=== PATIENT | female | born 1965 | race Caucasian/White ===

== ENCOUNTER 2021-01-16 08:40 | Day surgery (SDC) | payer OTHER ==
[2021-01-16] MEDS ORDERED: LIDOCAINE HCL 2% 100 MG/5 ML IJ ONE (08:41)
[2021-01-16] MEDS ORDERED: Depo-Medrol 80 MG/ML IM ONE (08:41)
[2021-01-16] MEDS ORDERED: DIPRIVAN 200 MG/20 ML IV ONE ×2 (11:22→11:34)
--- NOTE | 2021-01-16 13:15 | XRAY ---
Indication: Bilateral L4-S1 MBB. Intraoperative fluoroscopy was provided for 29 seconds. Single digital spot image submitted for interpretation demonstrates posterior needle tips projecting over the expected left and right L4-S1 nerve roots. Correlate with intraoperative findings/report.
--- NOTE | 2021-01-16 14:33 | XRAY ---
29 seconds of fluoroscopy was used in surgery for a bilateral L4-S1 MBB.
[2021-01-16] MEDS ORDERED: Lactated Ringers 1,000 ML IV ONE (17:26)
== END 2021-01-16 11:50 | disposition home or self-care (01) ==
LOC: SDC-PAIN 08:40
PROVIDERS: ATTEND Psychiatry & Neurology Pain Medicine
DX: M47.816 Spondylosis without myelopathy or radiculopathy, lumbar region (principal); Z79.899 Other long term (current) drug therapy
CPT/HCPCS: 64493; 64494; 72020; 77002; J1040; J2704

== ENCOUNTER 2021-02-27 07:36 | Day surgery (SDC) | payer OTHER ==
[2021-02-27] MEDS ORDERED: BUPIVACAINE 0.5% VIAL IJ ONE (07:37)
[2021-02-27] MEDS ORDERED: Depo-Medrol 40 MG/ML IM ONE (07:37)
[2021-02-27] MEDS ORDERED: DIPRIVAN 200 MG/20 ML IV ONE (08:49)
[2021-02-27] MEDS ORDERED: Lactated Ringers 1,000 ML IV ONE (09:55)
--- NOTE | 2021-02-27 09:55 | XRAY ---
Indication: Bilateral L4-S1 MBB. Intraoperative fluoroscopy provided for 19 seconds. Single digital spot image submitted for interpretation demonstrates posterior needle tips projecting over the expected left and right L4-S1 nerve roots. Correlate with intraoperative findings/report.
--- NOTE | 2021-02-27 09:57 | XRAY ---
19 seconds fluoroscopy time in surgery for bilateral L4-S1 MBB.
== END 2021-02-27 09:19 | disposition home or self-care (01) ==
LOC: SDC-PAIN 07:36
PROVIDERS: ATTEND Psychiatry & Neurology Pain Medicine
DX: M47.816 Spondylosis without myelopathy or radiculopathy, lumbar region (principal); J44.9 Chronic obstructive pulmonary disease, unspecified; M19.90 Unspecified osteoarthritis, unspecified site; Z79.899 Other long term (current) drug therapy
CPT/HCPCS: 64493; 64494; 72020; 77002; J1030; J2704

== ENCOUNTER 2021-04-03 12:06 | Day surgery (SDC) | payer OTHER ==
[2021-04-03] MEDS ORDERED: BUPIVACAINE 0.5% VIAL IJ ONE (12:07)
[2021-04-03] MEDS ORDERED: Depo-Medrol 40 MG/ML IM ONE (12:07)
[2021-04-03] MEDS ORDERED: Xylocaine 1% Vial 30 ML PF IJ ONE (12:07)
[2021-04-03] MEDS ORDERED: Lactated Ringers 1,000 ML IV ONE (13:46)
[2021-04-03] MEDS ORDERED: DIPRIVAN 200 MG/20 ML IV ONE ×2 (14:05→14:15)
--- NOTE | 2021-04-03 16:40 | XRAY ---
Indication: Right L4-S1 RFA. Intraoperative fluoroscopy provided for 1 minutes. 5 digital spot image submitted for interpretation demonstrates posterior needle tips projecting over the expected right L4-S1 nerve roots. Correlate with intraoperative findings/report.
--- NOTE | 2021-04-03 17:13 | XRAY ---
1 minute fluoroscopy time in surgery for right L4-S1 RFA.
== END 2021-04-03 14:45 | disposition home or self-care (01) ==
LOC: SDC-PAIN 12:06
PROVIDERS: ATTEND Psychiatry & Neurology Pain Medicine
DX: M47.816 Spondylosis without myelopathy or radiculopathy, lumbar region (principal); J44.9 Chronic obstructive pulmonary disease, unspecified; Z79.899 Other long term (current) drug therapy
CPT/HCPCS: 64635; 64636; 72100; 77002; J1030; J2001; J2704

== ENCOUNTER 2021-04-10 11:54 | Day surgery (SDC) | payer OTHER ==
[2021-04-10] MEDS ORDERED: Xylocaine 1% Vial 30 ML PF IJ ONE (11:55)
[2021-04-10] MEDS ORDERED: Depo-Medrol 40 MG/ML IM ONE (11:55)
[2021-04-10] MEDS ORDERED: BUPIVACAINE 0.5% VIAL IJ ONE (11:55)
[2021-04-10] MEDS ORDERED: Lactated Ringers 1,000 ML IV ONE (14:14)
--- NOTE | 2021-04-10 16:48 | XRAY ---
Indication: Left L4-S1 RFA. Intraoperative fluoroscopy provided for 48 seconds. 3 digital spot image submitted for interpretation demonstrates posterior needle tips projecting over the expected left L4-S1 nerve roots. Correlate with intraoperative findings/report.
--- NOTE | 2021-04-10 16:50 | XRAY ---
48 seconds of fluoroscopy was used in surgery for a left L4-S1 RFA.
== END 2021-04-10 14:35 | disposition home or self-care (01) ==
LOC: SDC-PAIN 11:54
PROVIDERS: ATTEND Psychiatry & Neurology Pain Medicine
DX: M47.817 Spondylosis without myelopathy or radiculopathy, lumbosacral region (principal); Z79.899 Other long term (current) drug therapy
CPT/HCPCS: 64635; 64636; 72100; 77002; J1030; J2001